=== PATIENT | female | born 1955 | race Caucasian/White ===

== ENCOUNTER 2022-04-17 14:11 | Outpatient (CLI) | payer OTHER, SELFPAY ==
[2022-04-17 16:50] LABS: Albumin* 4.2 g/dL (3.3-5.0); Chloride* 104 mmol/L (96-114)
[2022-04-17 16:51] LABS: Potassium* 4.3 mmol/L (3.6-5.1); Sodium* 140 mmol/L (135-149)
[2022-04-17 16:53] LABS: Aspartate Amino Transferase* 25 U/L (12-35); Bilirubin Total* 1.5 mg/dL (0.1-1.5); Blood Urea Nitrogen* 19 mg/dL (7-30); Carbon Dioxide* 32 mmol/L (20-32); Cholesterol* 175 mg/dL (90-199); Creatinine* 0.8 mg/dL (0.5-1.5); Estimated Glomerular Filt Rate 82 ml/min; Glucose* 86 mg/dL (60-115); Total Protein* 6.4 g/dL (6.0-8.3)
[2022-04-17 16:54] LABS: Alanine Aminotransferase* 29 U/L (4-35); Alkaline Phosphatase* 81 U/L (40-150); Calcium* 9.1 mg/dL (8.4-10.6); HDL Cholesterol* 58 mg/dL (>=50); LDL Cholesterol Calculated 64 mg/dL (<100); Triglycerides* 265 mg/dL (40-149)
== END 2022-04-17 14:12 | disposition home or self-care (01) ==
LOC: NFLDREF 15:21
PROVIDERS: PCP Family Medicine; Visit Provider Family Medicine
DX: Z01.419 Encounter for gynecological examination (general) (routine) without abnormal findings (principal); E78.5 Hyperlipidemia, unspecified; I10 Essential (primary) hypertension
CPT/HCPCS: 80053; 80061

== ENCOUNTER 2023-04-23 09:20 | Outpatient (CLI) | payer MEDICARE, OTHER, SELFPAY | END 2023-04-23 09:21 | disposition home or self-care (01) | LOC: NFLDREF 04-24 10:37 | PROVIDERS: PCP Family Medicine; Referring Provider Family Medicine; Visit Provider Family Medicine | DX: I10 Essential (primary) hypertension (principal); E78.2 Mixed hyperlipidemia | CPT/HCPCS: 80053; 80061 ==

== ENCOUNTER 2023-05-27 13:03 | Outpatient (CLI) | payer MEDICARE, OTHER, SELFPAY ==
--- NOTE | 2023-05-27 13:30 | CRLHL7_ITS ---
For Patients: As a result of the Century Cures Act, medical imaging exams and procedure reports are released immediately into your electronic medical record. You may view this report before your referring provider. If you have questions, please contact your health care provider. DXA BONE MINERAL DENSITY STUDY Reason for exam: Screening, asymptomatic menopausal state. Current height (in): 66.0. Weight (lb): 180.0. Menopause age: 65. Ethnicity: White. 1. Have you had a previous hip or vertebral fracture? No. 2. Have you had any fractures during your adult life which did not result from significant trauma (e.g., auto accident)? No. 3. Did either of your parents have a hip fracture? No. 4. Do you smoke? No. 5. Have you ever taken Glucocorticoids? No. 6. Do you have rheumatoid arthritis? No. 7. Do you have secondary osteoporosis? No. 8. Do you drink 3 or more alcoholic drinks per day? No. 9. Are you being treated for osteoporosis? No. 10. Have you ever taken any of the following medications: Actonel, Evista, Fosamax, Miacalcin, Reclast, Boniva, Forteo, HRT (i.e. estrogen/hormone therapy), Protelos, Prolia, Vitamin D, Calcium, other ??? please specify. ANSWER: Yes, multivitamin, vitamin D, calcium. 11. Do you have any of the following medical conditions: Anorexia or bulimia, asthma or emphysema, end stage renal disease, hyperparathyroidism, any seizure disorders, cancer, inflammatory bowel diseases, hysterectomy, other ??? please specify. ANSWER: No. 12. What was your maximum height (inches)? 66. 13. Do you perform weight bearing exercise regularly? Yes. 14. Do you regularly consume dairy products? No. 15. Do you drink caffeinated beverages? No. 16. At what age did your period start? 15. 17. Are you premenopausal? No. 18. How many full term pregnancies have you had? 4. 19. Have you ever missed your period for more than 6 months in a row (not including or menopause)? No. TECHNIQUE: Bone mineral density study was performed using the [employer].. FINDINGS: The results of the study expressed as bone mineral density (BMD) are as follows: Lumbar spine L1 to L3: BMD: 0.825 g/cm2. T-score: -1.8. Z-score: 0.0. Neck Left: BMD: 0.679 g/cm2. T-score: -1.5. Z-score: 0.0. Right: BMD: 0.598 g/cm2. T-score: -2.3. Z-score: -0.7. Total Left: BMD: 0.830 g/cm2. T-score: -0.9. Z-score: 0.4. Right: BMD: 0.741 g/cm2. T-score: -1.6. Z-score: -0.4. IMPRESSION: Osteopenia. FRAX 10-year Fracture Risk Major Osteoporotic Fracture: 12 percent Hip Fracture: 2.1 percent Reported Risk Factors: [place] () Neck BMD=0.598, BMI=29.1 Elie Regalado M.D. Diagnostic Radiologist [email or web address] NATHALY/mati / be/Dictated by: Elie Regalado MD @ 05/27/2023 3:49:00 PM (Electronically Signed)
== END 2023-05-27 13:04 | disposition home or self-care (01) ==
PROVIDERS: PCP Family Medicine; Visit Provider Family Medicine
DX: Z13.820 Encounter for screening for osteoporosis (principal); M85.89 Other specified disorders of bone density and structure, multiple sites; Z78.0 Asymptomatic menopausal state
CPT/HCPCS: 77080

== ENCOUNTER 2023-07-15 11:17 | Outpatient (CLI) | payer MEDICARE, OTHER, SELFPAY ==
--- NOTE | 2023-07-15 11:30 | MM_ITS ---
Patient: JOSUÉ EAST Facility:?[facility] Patient ID:?[id number] Site Patient ID:?[id number]. Site :?[id number] Study:?XRay-Breast Bilateral 3D W/CAD-07/15/2023 11:45:51 AM Ordering Physician:?Lenka Fischer Final Report: BILATERAL SCREENING MAMMOGRAM WITH COMPUTER-AIDED DETECTION AND TOMOSYNTHESIS TECHNIQUE: CC and MLO views were obtained. These mammographic images have been obtained using full-field digital technique. These mammographic images were interpreted with the benefit of computer-aided detection. Breast Tomosynthesis was used in this interpretation. COMPARISON FILM: 05/13/21, 05/10/20, 05/06/19. FINDINGS: There are scattered areas of fibroglandular density. IMPRESSION: There is no radiographic evidence for malignancy. ASSESSMENT: BI-RADS Category 1: Negative RECOMMENDATION: Routine screening mammogram in 1 year. A lay language report of this examination will be provided to the patient. Elie Regalado M.D. Diagnostic Radiologist [email or web address] DSM/sp R& Transcribed: 4:13 p.m. SP/Dictated by: Elie Regalado MD @ 07/16/2023 12:02:00 PM Signed by:?Elie Regalado MD @07/17/2023 5:31:19 AM (Electronic Signature)
== END 2023-07-15 11:18 | disposition home or self-care (01) ==
LOC: MAMMO 11:18
PROVIDERS: PCP Family Medicine; Visit Provider Family Medicine
DX: Z12.31 Encounter for screening mammogram for malignant neoplasm of breast (principal)
CPT/HCPCS: 77063; 77067

== ENCOUNTER 2024-07-21 09:49 | Outpatient (CLI) | payer MEDICARE, OTHER, SELFPAY | END 2024-07-21 09:50 | disposition home or self-care (01) | PROVIDERS: PCP Family Medicine; Visit Provider Family Medicine | DX: I10 Essential (primary) hypertension (principal); E78.2 Mixed hyperlipidemia; E53.8 Deficiency of other specified B group vitamins; M85.89 Other specified disorders of bone density and structure, multiple sites | CPT/HCPCS: 80053; 80061; 82306; 82607 ==

== ENCOUNTER 2024-07-29 09:17 | Outpatient (CLI) | payer MEDICARE, OTHER, SELFPAY ==
--- NOTE | 2024-07-29 11:23 | P.ANES_ITS ---
Anesthesia Charges Start Date/Time Anesthesia Start Date: 07/29/24 Anesthesia Start Time: 10:30 Stop Date/Time Anesthesia Stop Date: 07/29/24 Anesthesia Stop Time: 11:25 Coding CPT Codes CPT Codes: BALJITS LWR INTST NDSC NOS - [id number] ([id number]) P2 - PATIENT W/MILD SYST DISEASE, QZ - PUBLICATIONS SALES REPRESENTATIVE SVC W/O KNITTING SUPERVISOR BY
--- NOTE | 2024-07-29 11:23 | W.ANESCHARGE ---
Anesthesia Charges Start Date/Time Anesthesia Start Date: 07/29/24 Anesthesia Start Time: 10:30 Stop Date/Time Anesthesia Stop Date: 07/29/24 Anesthesia Stop Time: 11:25 Coding CPT Codes CPT Codes: BALJITS LWR INTST NDSC NOS - [id number] ([id number]) P2 - PATIENT W/MILD SYST DISEASE, QZ - TAIL PULLER SVC W/O PROPERTY FIELD ADJUSTER BY
== END 2024-07-29 09:18 | disposition home or self-care (01) ==
LOC: OP CLINIC 09:18
PROVIDERS: PCP Family Medicine; Visit Provider Surgery
DX: Z12.11 Encounter for screening for malignant neoplasm of colon (principal); D12.2 Benign neoplasm of ascending colon; D12.8 Benign neoplasm of rectum; K64.8 Other hemorrhoids; K57.30 Diverticulosis of large intestine without perforation or abscess without bleeding
CPT/HCPCS: 00811; 45385; 88305; J2704

== ENCOUNTER 2024-10-10 10:19 | Outpatient (CLI) | payer MEDICARE, SELFPAY | END 2024-10-10 10:20 | disposition home or self-care (01) | LOC: NFLDUCREF 10:20 | PROVIDERS: PCP Family Medicine | DX: M10.9 Gout, unspecified (principal) | CPT/HCPCS: 84550 ==

== ENCOUNTER 2024-10-18 08:07 | Outpatient (CLI) | payer MEDICARE, SELFPAY ==
--- NOTE | 2024-10-18 08:15 | CRLHL7_ITS ---
For Patients: As a result of the Century Cures Act, medical imaging exams and procedure reports are released immediately into your electronic medical record. You may view this report before your referring provider. If you have questions, please contact your health care provider. INDICATION: BILATERAL SCREENING MAMMOGRAM, ASYMPTOMATIC 69 Y/O FEMALE COMPARISON: 07/15/2023, 05/13/2021, 05/10/2020 TECHNIQUE: Digital mammogram in CC and MLO projections including computer-aided detection (CAD) and tomosynthesis. BREAST COMPOSITION: There are scattered areas of fibroglandular density. FINDINGS: No suspicious findings. ASSESSMENT: BI-RADS 1 Negative RECOMMENDATION: Annual screening mammogram. A lay language report of this examination will be provided to the patient. Dictated by: Elie Regalado MD @ 10/19/2024 10:25:42 (Electronically Signed)
== END 2024-10-18 08:08 | disposition home or self-care (01) ==
LOC: MAMMO 08:08
PROVIDERS: PCP Family Medicine; Visit Provider Family Medicine
DX: Z12.31 Encounter for screening mammogram for malignant neoplasm of breast (principal)
CPT/HCPCS: 77063; 77067

== ENCOUNTER 2025-01-30 09:07 | Outpatient (CLI) | payer MEDICARE, SELFPAY ==
--- NOTE | 2025-01-30 10:45 | P.ANES_ITS ---
Anesthesia Charges Start Date/Time Anesthesia Start Date: 01/30/25 Anesthesia Start Time: 10:06 Stop Date/Time Anesthesia Stop Date: 01/30/25 Anesthesia Stop Time: 10:40 Coding CPT Codes CPT Codes: FRANCISCO LWR INTST NDSC NOS - [id number] ([id number]) P2 - PATIENT W/MILD SYST DISEASE, QK - POLE SHAVER 2-4 CNCRNT ANES PROC, QX - FAGOTER SVC W/ MD MED DIRECTION
--- NOTE | 2025-01-30 10:45 | W.ANESCHARGE ---
Anesthesia Charges Start Date/Time Anesthesia Start Date: 01/30/25 Anesthesia Start Time: 10:06 Stop Date/Time Anesthesia Stop Date: 01/30/25 Anesthesia Stop Time: 10:40 Coding CPT Codes CPT Codes: FRANCISCO LWR INTST NDSC NOS - [id number] ([id number]) P2 - PATIENT W/MILD SYST DISEASE, QK - EARLY CHILDHOOD SERVICES COORDINATOR 2-4 CNCRNT ANES PROC, QX - MARINE ENGINEERING TEACHER SVC W/ MD MED DIRECTION
--- NOTE | 2025-01-30 11:57 | P.ANES_ITS ---
Anesthesia Charges Start Date/Time Anesthesia Start Date: 01/30/25 Anesthesia Start Time: 10:06 Stop Date/Time Anesthesia Stop Date: 01/30/25 Anesthesia Stop Time: 10:40 Coding CPT Codes CPT Codes: FRANCISCO LWR INTST NDSC NOS - [id number] ([id number]) P2 - PATIENT W/MILD SYST DISEASE, QK - SUPERVISOR BOARDING 2-4 CNCRNT ANES PROC, QX - BIOMEDICAL ENGINEERING INTERNSHIP SVC W/ MD MED DIRECTION
--- NOTE | 2025-01-30 11:57 | W.ANESCHARGE ---
Anesthesia Charges Start Date/Time Anesthesia Start Date: 01/30/25 Anesthesia Start Time: 10:06 Stop Date/Time Anesthesia Stop Date: 01/30/25 Anesthesia Stop Time: 10:40 Coding CPT Codes CPT Codes: FRANCISCO LWR INTST NDSC NOS - [id number] ([id number]) P2 - PATIENT W/MILD SYST DISEASE, QK - LUNCH COUNTER MANAGER 2-4 CNCRNT ANES PROC, QX - ONLINE CONTENT COORDINATOR SVC W/ MD MED DIRECTION
== END 2025-01-30 09:08 | disposition home or self-care (01) ==
LOC: OP CLINIC 09:07
PROVIDERS: PCP Family Medicine; Visit Provider Surgery
DX: Z12.11 Encounter for screening for malignant neoplasm of colon (principal); Z86.0101 Personal history of adenomatous and serrated colon polyps; D12.2 Benign neoplasm of ascending colon; D12.8 Benign neoplasm of rectum; K63.89 Other specified diseases of intestine
CPT/HCPCS: 00811; 45380; 45385; 88305; J2704